=== PATIENT | male | born 1990 | race Caucasian/White ===

== ENCOUNTER 2016-06-10 13:19 | Observation (INO) ==
[2016-06-10] MEDS ORDERED: RIVAROXABAN 15 MG TABLET PO STA (15:08)
[2016-06-10 15:15] LABS: Basophils # 0.1 10*3/uL (0.0-0.2); Eosinophils # 0.1 10*3/uL (0.0-0.87); Eosinophils % 2.4 % (0.00-10.9); Hemoglobin 17.4 GM/DL (14.0-18.0); Lymphocytes % 39.2 % (21.2-54.2); Mean Corpuscular HGB Conc 32.2 GM/DL (32-36); Mean Corpuscular Hemoglobin 29 PG (27-34); Mean Corpuscular Volume 89.6 FL (87-102); Mean Platelet Volume 9.5 FL (9.6-12.0); Monocytes # 0.6 10*3/uL (0.11-0.8); Monocytes % 11.6 % (1.7-12.7); Neutrophils # 2.3 10*3/uL (1.4-7.4); Neutrophils % 45.8 % (38.7-73.9); Platelet Count 314 T/CUMM (130-400); Red Blood Count 6.03 MC/CUMM (3.8-5.5); Red Cell Distribution Width 13.4 % (9.3-17.3)
[2016-06-10 15:19] LABS: INR 1.1; PT Patient Result 11.8 SECS; Partial Thromboplastin Time 29.6 SECS (0-40)
--- NOTE | 2016-06-10 15:27 | Emergency Department Note ---
Jevon Lau Hilary, am scribing for, and in the presence of, Ashish Coyle MD 14:02. Leonides Lau Doug C, MD, personally performed the services described in this documentation, ascribed by Karie Escoto in my presence, and it is both accurate and complete [phone] . Arrival - Arrival Chief Complaint: Extremity Problem Stated Complaint: DVT LEFT LEG/SENT FORM [facility] ED Nursing Triage Note: C/O HAVING PAIN IN THE LEFT LEG X 2 WEEKS., STATES JUST HAD AN ULTRASOUND ON THE LEFT LEG AND WAS BROUGHT FROM ULTRASOUND TO ED., STATES HE WAS TOLD HE HAD A DVT Mode of Arrival: Wheelchair Limitations: No Limitations Source: Patient, RN Notes Reviewed Time Seen by Provider: 06/10/16 13:52 - History of Present Illness HPI Narrative: Patient is a 26-year-old white who presents to the emergency room complaining of persistent left lower extremity pain for the last 3 weeks. He saw a nurse practitioner who sent him for venous Dopplers and was found to have DVT on the left. Patient has no history of confinement, injury to this area, medications of risks or recent illness. Patient states his mother's had DVT. Patient's been normally active and not having any other problems. Onset (ago): week(s) Quality: other (Swollen) Allergies/Adverse Reactions: Allergies Allergy/AdvReac Type Severity Reaction Status Date / Time No Known Allergies Allergy Unverified 06/10/16 13:48 Home Medications: Home Medications Medication Instructions Recorded Confirmed Type Dextroamphetamine/Amphetamine 30 mg PO QOTHER DAY 06/10/16 06/10/16 History [Adderall 30 mg Tablet] Naproxen [Naprosyn Tab] 500 mg PO Q12H 06/10/16 06/10/16 History Review of System - Review of System 12 point system: reviewed and no additional remarkable complaints except as stated - Review of System Respiratory: Absent: respiratory distress Cardiovascular: Absent: chest pain Musculoskeletal: Present: leg pain (Left leg swelling) Medical,Surgical,& Family Hx - Medical History Medical History: noncontributory - Surgical History Surgical History: noncontributory - Family History Family History: Reports;: Additional Family History (Mother with history of DVT. ) - Social History Smoking Status: Never smoker Frequency of Alcohol Use: Occasionally Type of Drug Use: None Exam Vital Signs: Vital Signs Temperature 98.4 F 06/10/16 15:07 Pulse Rate 112 H 06/10/16 15:07 Respiratory Rate 18 06/10/16 15:07 Blood Pressure 119/72 06/10/16 15:07 O2 Sat by Pulse Oximetry 98 06/10/16 13:43 - General General appearance: alert, in no apparent distress - Head Head exam: Present: atraumatic, normocephalic - Eye Eye exam: Present: normal appearance, PERRL, EOMI - ENT ENT exam: Present: normal exam, normal oropharynx, mucous membranes moist. Absent: mucous membranes dry - Neck Neck exam: Present: full ROM, trachea midline. Absent: tenderness - Chest Chest inspection: Present: symmetric chest wall rise. Absent: tenderness - Respiratory Respiratory exam: Present: normal lung sounds bilaterally. Absent: respiratory distress - Cardiovascular Cardiovascular exam: Present: regular rate, normal rhythm, normal heart sounds. Absent: murmur, rubs, gallop - Abdominal Exam Abdominal exam: Present: soft, normal bowel sounds. Absent: distention, tenderness - Extremities Exam Extremities exam: Present: tenderness (Left Leg Swelling), calf tenderness (And swelling on left) - Back Exam Back exam: Present: full ROM. Absent: tenderness - Neurological Exam Neurological exam: Present: alert, oriented X3, CN II-XII intact. Absent: motor sensory deficit - Psychiatric Psychiatric exam: Present: normal affect, normal mood - Skin Skin exam: Present: warm, dry, intact, normal color. Absent: rash Course Course Narrative: Patient's clinical presentation and radiographic findings were discussed with Anupam who is covering for the hospitalist service. He will arrange for patient to be seen here in the emergency room and evaluated for admission. Patient was started on Xarelto. Results - Labs CBC & BMP: 06/10/16 14:54 Lab Results: I have reviewed the patients labs Labs: Laboratory Tests 06/10/16 14:54 WBC 5.0 RBC 6.03 H Hgb 17.4 Hct 54.0 H MPV 9.5 L Baso % (Auto) 1.0 H Disposition Clinical Impression: Deep vein thrombosis (DVT) of left lower extremity Case discussed with: patient, patient's family Disposition: Still a Patient Condition: Stable Time of Disposition: 15:27
[2016-06-10 15:33] LABS: Albumin 3.8 G/DL (3.4-5.0); Calcium 8.9 MG/DL (8.5-10.1); Osmolality,Calculated 276.4 MOS/KG (273-304); Total Protein 7.4 G/DL (6.4-8.3)
[2016-06-10] MEDS ORDERED: ZALEPLON 5 MG CAPSULE PO PRN (15:33)
[2016-06-10] MEDS ORDERED: MORPHINE 2 MG/1 ML SYRINGE IV PRN (15:33)
[2016-06-10] MEDS ORDERED: DOCUSATE SODIUM 100 MG CAPSULE PO PRN (15:33)
[2016-06-10] MEDS ORDERED: LACTULOSE 20 GM/30 ML UDCUP PO PRN (15:33)
[2016-06-10] MEDS ORDERED: ACETAMINOPHEN 325 MG TABLET PO PRN (15:33)
[2016-06-10] MEDS ORDERED: ONDANSETRON 4 MG/2 ML VIAL IV PRN (15:33)
[2016-06-10] MEDS ORDERED: RIVAROXABAN 15 MG TABLET ONE (15:39)
[2016-06-10 16:16] LABS: ABG HCO3 27.1 MMOL/L (20-26); ABG Oxygen Saturation 98.1 % (95-100); ABG PCO2 37.5 MM HG (35-48); ABG PH 7.459 (7.35-7.45); ABG TCO2 21.6 MMOL/L (23-27)
--- NOTE | 2016-06-10 17:48 | Hospitalist History & Physical ---
Assessment and Plan - Time spent with patient Time spent with patient: Greater than 30 minutes (1) Deep vein thrombosis (DVT) of left lower extremity Status: Acute Assessment and plan: Patient found to have proximal DVT in left leg. Will admit for observation and started on Xarelto and obtain lab work. CBC, BMP, PT PTT INR, ABGs, UA. Current Visit: Yes History of Present Illness Chief complaint: left leg pain History of present illness: Mr. Farrell is a 26 year old male with no significant past medical history presents to the emergency room complains of left leg pain and edema 3 weeks. The patient states that he is [employer] and noticed the pain started in his left leg while standing at attention for about 30 minutes. He states that he went a nurse practitioner who prescribed him naproxen and cephalexin. Patient then followed up with his PCP nurse practitioner Noemi at [facility] who ordered a venous Doppler this morning and found a DVT in the proximal left leg. Patient was then sent to the ER for further evaluation and management. On exam, the patient is lying in bed in no apparent distress. He states that when the pain began, it felt like "stepping on a nerve". He said that the pain has been relieved with the naproxen. He denies any headache, chest pain, palpitations, shortness of breath, near syncope, or pain with inspiration. He will be admitted to the hospital medicine service for observation and will be initiated on anticoagulation. Home Medications Medication Instructions Recorded Confirmed Type Dextroamphetamine/Amphetamine 30 mg PO QOTHER DAY 06/10/16 06/10/16 History [Adderall 30 mg Tablet] Naproxen [Naprosyn Tab] 500 mg PO Q12H 06/10/16 06/10/16 History Allergies Allergy/AdvReac Type Severity Reaction Status Date / Time No Known Allergies Allergy Unverified 06/10/16 13:48 Medical,Surgical,& Family Hx - Family History Family History: Reports;: Additional Family History (Mother with history of DVT. ) - Social History Smoking Status: Never smoker Frequency of Alcohol Use: Occasionally Type of Drug Use: None Exam - Constitutional Vitals: Period Temp Pulse Resp BP Sys/Velazquez Pulse Ox Last 24 Hr 89 18 132/86 97 Exam: General appearance: normal weight, no acute distress - Head Head exam: Present: normocephalic, atraumatic - Eye Eye exam: Present: EOMI. Absent: conjunctival injection, nystagmus Pupils: Present: ROBERT, normal accommodation - ENT ENT exam: Present: normal exam, normal external ear exam - Neck Neck exam: Present: normal inspection. Absent: lymphadenopathy, tenderness, thyromegaly - Respiratory Respiratory exam: Present: clear to auscultation bilaterally. Absent: rales, rhonchi, wheezes - Cardiovascular Cardiovascular exam: Present: regular rate and rhythm. Absent: carotid bruit, gallop, rubs - GI/Abdominal GI/Abdominal exam: Present: normal bowel sounds. Absent: ascites, distended, mass - Extremities Exam Extremities exam: Present: normal inspection, normal capillary refill. Absent: edema - Back Exam Back exam: Absent: CVA tenderness (L), CVA tenderness (R) - Neurological Exam Neurological exam: Present: alert, oriented X3 - Psychiatric Psychiatric exam: Present: normal affect, normal mood - Skin Skin exam: Present: normal color, warm, dry Results - Labs CBC & BMP: 06/10/16 14:54 06/10/16 14:54 Lab Results: I have reviewed the past 24 hour labs Quality Measures - VTE Contraindication to Mechanical VTE Prophylaxis: Current Diagnosis of DVT
[2016-06-11 06:30] LABS: Basophils # 0.1 10*3/uL (0.0-0.2); Basophils % 0.9 % (0.0-0.8); Eosinophils # 0.2 10*3/uL (0.0-0.87); Eosinophils % 2.9 % (0.00-10.9); Hematocrit 52.5 VOL% (42.0-52.0); Hemoglobin 16.8 GM/DL (14.0-18.0); Immature Granulocytes % 0.2 %; Immature Granulocytes Absolute 0.01 #; Lymphocytes # 2.4 10*3/uL (1.4-4.0); Mean Corpuscular Hemoglobin 29 PG (27-34); Mean Corpuscular Volume 89.4 FL (87-102); Mean Platelet Volume 9.9 FL (9.6-12.0); Monocytes # 0.5 10*3/uL (0.11-0.8); Monocytes % 9.9 % (1.7-12.7); Neutrophils # 2.3 10*3/uL (1.4-7.4); Neutrophils % 42.1 % (38.7-73.9); Platelet Count 319 T/CUMM (130-400); Red Blood Count 5.87 MC/CUMM (3.8-5.5); Red Cell Distribution Width 13.7 % (9.3-17.3); White Blood Count 5.4 T/CUMM (4-12)
[2016-06-11 06:58] LABS: Calcium 9.2 MG/DL (8.5-10.1); Osmolality,Calculated 279.3 MOS/KG (273-304)
[2016-06-11 08:01] VITALS: BP 118/50
[2016-06-11 08:48] LABS: Apearance,Urine CLEAR (Clear); Bilirubin,Urine Negative (Negative); Blood, Urine Negative (Negative); Glucose,Urine (UA) Negative (Negative); Ketones,Urine Negative (Negative); Mucus,Urine Occasional /LPF (Occasional); Nitrite,Urine Negative (Negative); Protein,Urine Negative; RBC,Urine 1 /HPF (0-4); Squamous Epithelial Cell,Urine Occasional /HPF (0-10); Urine Color Yellow (Yellow); Urine Specific Gravity 1.009 (1.001-1.035); Urine Urobilinogen < 2.0 EU/DL (0.2-1.0); WBC,Urine <1 /HPF (0-6)
[2016-06-11] MEDS ORDERED: APIXABAN 5 MG TABLET PO SCH ×2 (09:00→21:00)
[2016-06-11] MEDS ORDERED: PANTOPRAZOLE 40 MG TABLET PO SCH (09:00)
--- NOTE | 2016-06-11 09:24 | Discharge Summary ---
Hospital Course - Hospital Course Hospital Course: Mr Farrell presented with swelling of left leg. U/S revealed a DVT. Coagulation profile drawn in ED. He was started on Eliquis, and will require 3 months of treatment. I called the pharmacy to ensure he will receive 10mg po BID for 10 days prior to initiation of 5mg po BID. Patient has and can afford the costs of the medication. He will be given a coupon for one free month if applicable. He was instructed to see his PCP and encouraged only light duties during treatment of DVT. By discharge, he had met maximum benefit of hospitalization. - Time spent with patient Time with patient DS: Greater than 30 minutes Discharge Plan - Discharge Data Disposition: Disch To Home/Self Care Condition at Discharge: Stable Discharge Diet: advance to your usual diet Activity: no lifting, no prolonged standing Contact your physician if you experience:: Shortness of breath - Discharge Medications New Apixaban [Eliquis] 5 mg PO BID #60 tablet Continue Naproxen [Naprosyn Tab] 500 mg PO Q12H Dextroamphetamine/Amphetamine [Adderall 30 mg Tablet] 30 mg PO QOTHER DAY - Follow Up or Referral - Forms/Instructions Forms: Acute Care Work/School Release Exam - Constitutional Vitals: Period Temp Pulse Resp BP Sys/Velazquez Pulse Ox Last 24 Hr 97.1 F-98.2 F 76-89 16-21 105-132/50-86 95-97 General appearance: normal weight, no acute distress - Head Head exam: Present: normal inspection, normocephalic, atraumatic - Eye Eye exam: Present: EOMI Pupils: Present: ROBERT - ENT ENT exam: Present: normal exam - Neck Neck exam: Present: normal inspection - Respiratory Respiratory exam: Present: clear to auscultation bilaterally. Absent: prolonged expiratory phase, wheezes - Cardiovascular Cardiovascular exam: Present: regular rate and rhythm. Absent: bradycardia, irregular rhythm, systolic murmur - GI/Abdominal GI/Abdominal exam: Present: normal bowel sounds. Absent: ascites, distended, firm, guarding, tenderness, rebound - Extremities Exam Extremities exam: Present: edema (left leg) Discharge Results Labs on day of discharge: Labs from last 24 hours 06/11/16 06/11/16 06/10/16 05:46 05:46 21:00 WBC 5.4 RBC 5.87 H Hgb 16.8 Hct 52.5 H MCV 89.4 MCH 29 MCHC 32.0 RDW 13.7 Plt Count 319 MPV 9.9 Neut % (Auto) 42.1 Lymph % (Auto) 44.0 [place] % (Auto) 9.9 Eos % (Auto) 2.9 Baso % (Auto) 0.9 H Neut # (Auto) 2.3 Lymph # (Auto) 2.4 [place] # (Auto) 0.5 Eos # (Auto) 0.2 Baso # (Auto) 0.1 Immature Gran % 0.2 Nucleated RBC % 0.0 Immature Gran # 0.01 Nucleated RBCs # 0.00 ABG pH ABG pCO2 ABG pO2 ABG HCO3 ABG Total CO2 ABG O2 Saturation ABG Base Excess Sodium 141 Potassium 4.0 Chloride 102 Carbon Dioxide 31 Anion Gap 12.0 BUN 11 Creatinine 0.90 GFR Calculation 126 BUN/Creatinine Ratio 12.00 Glucose 91 Calculated Osmolality 279.3 Calcium 9.2 Urine Color Yellow Urine Appearance Clear Urine pH 6.0 Ur Specific [place] 1.009 Urine Protein Negative Urine Glucose (UA) Negative Urine Ketones Negative Urine Blood Negative Urine Nitrate Negative Urine Bilirubin Negative Urine Urobilinogen < 2.0 H Urine Leukocytes Negative Urine RBC 1 Urine WBC <1 Ur Squamous Epith Cells Occasional Urine Mucus Occasional Ur Culture Indicated? Not indicated 06/10/16 16:12 WBC RBC Hgb Hct MCV MCH MCHC RDW Plt Count MPV Neut % (Auto) Lymph % (Auto) [place] % (Auto) Eos % (Auto) Baso % (Auto) Neut # (Auto) Lymph # (Auto) [place] # (Auto) Eos # (Auto) Baso # (Auto) Immature Gran % Nucleated RBC % Immature Gran # Nucleated RBCs # ABG pH 7.459 H ABG pCO2 37.5 ABG pO2 103.0 H ABG HCO3 27.1 H ABG Total CO2 21.6 L ABG O2 Saturation 98.1 ABG Base Excess 3.0 H Sodium Potassium Chloride Carbon Dioxide Anion Gap BUN Creatinine GFR Calculation BUN/Creatinine Ratio Glucose Calculated Osmolality Calcium Urine Color Urine Appearance Urine pH Ur Specific [place] Urine Protein Urine Glucose (UA) Urine Ketones Urine Blood Urine Nitrate Urine Bilirubin Urine Urobilinogen Urine Leukocytes Urine RBC Urine WBC Ur Squamous Epith Cells Urine Mucus Ur Culture Indicated? DS: Provider Date of admission: 06/10/16 15:33 Primary care physician: Lucas Coyle MD Attending physician on admission: Mehreen Gonzalez MD Consults: 06/10/16 15:49 Consult to Pharmacy [CONS] Routine Reason for Pharmacy Consult: Adjust Meds Renal Funct Discharging clinician: Mehreen Gonzalez MD Expected date of discharge: 06/11/16
[2016-06-14 14:08] LABS: Protein C Activity Plasma 96 % (70 - 150)
[2016-06-14 16:46] LABS: Protein S Activity Plasma 169 % (65 - 160)
[2016-06-16 13:59] LABS: Factor V Leiden (R506Q) Mutati Negative (Negative)
[2016-06-16 17:51] LABS: DRVVT Screen Ratio 1.2 ratio (0.0 - 1.1)
[2016-06-20 10:38] LABS: DRVVT Confirmation 0.9 ratio (0.0 - 1.1); DRVVT Mix Ratio (Mayo Reflex) 1.1 ratio (0.0 - 1.1); Thrombin Time (Bovine), P 21 sec (15 - 23)
== END 2016-06-11 11:45 | disposition home or self-care (01) ==
LOC: N.EDINP 13:19 → N.ED 13:19 → N.4E 16:05
PROVIDERS: ADMIT Internal Medicine; ATTEND Internal Medicine